=== PATIENT | male | born 1940 | race Caucasian/White ===

== ENCOUNTER → 2019-07-27 | Outpatient (CLI) | payer MEDICARE, OTHER ==
[~2019-07-27] MED LIST: ASPI81CH PO; ATOR20 PO; Arnica120 ML TP; CHOL10002 PO; CILO100 PO; CLOP75 PO; DILT120 PO; Flomax0.4 MG PO; METO50 PO; METPRE4DP PO; Metoprolol Tar100 MG PO; NAPR500 PO; SPIHYD PO; TAMS.4ER PO; Toprol Xl50 MG PO; VICODIN 5-3001 EACH PO; XARELTO20 MG PO
== END | disposition home or self-care (01) ==
LOC: LAB SHORT 11:44 → PLD 11:44
DX: L57.8 Other skin changes due to chronic exposure to nonionizing radiation (principal)
CPT/HCPCS: 88305

== ENCOUNTER 2020-04-25 09:04 | Day surgery (SDC) | payer MEDICARE, OTHER ==
[~2020-04-25] VITALS: Ht 180.3 cm; Wt 98.1 kg
[~2020-04-25 09:04] MED LIST changes: +ASCO500 PO; +Cartia Xt240 MG PO; +LISI5 PO; +MULTIVITAMINS1 EAC3 PO; +Vitamin D2000 UNIT PO
[2020-04-25] MEDS ORDERED: MAGCHL64ER (09:45)
== END 2020-04-25 11:30 | disposition home or self-care (01) ==
LOC: ORSCSDS 09:04
PROVIDERS: Surgery
PROC: 0DJD8ZZ Inspection of Lower Intestinal Tract, Via Natural or Artificial Opening Endoscopic (ICD-10-PCS; principal; 2020-04-25 10:30)
DX: Z12.11 Encounter for screening for malignant neoplasm of colon (principal); Z86.010 Personal history of colon polyps; K57.30 Diverticulosis of large intestine without perforation or abscess without bleeding; E78.5 Hyperlipidemia, unspecified; Z79.01 Long term (current) use of anticoagulants; Z79.899 Other long term (current) drug therapy
CPT/HCPCS: J2704; J7120